=== PATIENT | male | born 1960 | race Caucasian/White ===

== ENCOUNTER 2022-04-01 22:09 | Inpatient (IN) | payer BC, OTHER ==
[~2022-04-01 22:09] MED LIST: Iopamidol-370 76% 500 ML 1 ML ONE
[2022-04-01 22:38] LABS: #Basophils 0.1 thou/uL (0.0-0.2); #Eosinphils 0.3 thou/uL (0.0-0.7); #Lymphocytes 4.4 thou/uL (1.20-3.40); #Neutrophils 12.9 thou/uL (1.40-6.50); %Basophils 0.4 % (0.0-1.0); %Eosinophils 1.4 % (0.0-10.0); %Lymphocytes 23.6 % (21.0-51.0); %Monocytes 5.3 % (0.0-10.0); %Neutrophils 69.3 % (42.0-75.0); Hemoglobin 12.9 g/dL (14.0-18.0); Mean Corpuscular HGB CONC 34.2 g/dL (32.0-36.0); Mean Corpuscular Hemoglobin 33.3 pg (27.0-31.0); Mean Corpuscular Volume 97.3 fL (78.0-98.0); Mean Platelet Volume 9.4 fL (7.4-10.4); Platelet Count 143 thou/uL (130-400); RBC Distribution Width 11.4 % (11.5-14.5); Red Blood Cell (RBC) Count 3.88 mill/uL (4.70-6.10); White Blood Cell (WBC) Count 18.7 thou/uL (4.8-10.8)
[2022-04-01 22:41] LABS: INR-International Normal Ratio 1.1; PTT 31.2 sec (22.9-36.1); Prothrombin Time 14.4 sec (12.0-14.7)
[2022-04-01 22:58] LABS: ALT (SGPT) 60 U/L (8-55); AST (SGOT) 83 U/L (5-34); Albumin 3.9 g/dL (3.4-4.8); Alcohol Less than 10 mg/dL (Less than 10); Alkaline Phosphatase 50 U/L (40-110); Anion Gap 16 mmol/L (10-20); BUN (Urea Nitrogen) 25 mg/dL (8.4-25.7); Bilirubin, Total 0.9 mg/dL (0.2-1.2); Calc. Creatinine Clearance 0 mL/min (70-130); Calcium 8.8 mg/dL (7.8-10.44); Carbon Dioxide 22 mmol/L (23-31); Chloride 103 mmol/L (98-107); Estimated GFR 67; Globulin 2.8 g/dL (2.4-3.5); Glucose 171 mg/dL (80-115); Lipase 50 U/L (8-78); Potassium 3.5 mmol/L (3.5-5.1); Protein, Total 6.7 g/dL (5.8-8.1); Sodium 137 mmol/L (136-145)
[2022-04-01] MEDS ORDERED: CEFAZOLIN 2 GM VIAL ONE (22:58)
[2022-04-01] MEDS ORDERED: Boostrix 0.5 ML (Tdap) VIAL (>/=7 yrs of age) ONE (22:58)
[2022-04-01] MEDS ORDERED: Ondansetron PF 4 MG/2 ML Vial ONE (23:48)
[2022-04-01] MEDS ORDERED: Morphine 4 MG/ML VIAL ONE (23:58)
[2022-04-01] MEDS ORDERED: Clindamycin/D5W 900 mg/50 ml Premix Bag ONE (23:58)
[2022-04-02] MEDS ORDERED: Lidocaine 1% (PF) 30 ML VIAL ONE ×2 (00:15→11:08)
[2022-04-02] MEDS ORDERED: Ondansetron PF 4 MG/2 ML Vial ONE ×2 (00:16→12:29)
[2022-04-02] MEDS ORDERED: Tranexamic Acid 1,000 MG/10 ML VIAL ONE (00:44)
[2022-04-02] MEDS ORDERED: Calcium Chloride 1 GM/10 ML Abboject SYRINGE ONE (00:59)
[2022-04-02] MEDS ORDERED: TETANUS, DIPHTHERIA TOX,ADULT (TDVAX) 0.5 ML VIAL IM ONE (01:48)
[2022-04-02] MEDS ORDERED: Ondansetron ODT 4 MG TAB PO PRN (01:48)
[2022-04-02] MEDS ORDERED: Dextrose 50% Abboject 50 ML SYRINGE SLOW IVP PRN (01:48)
[2022-04-02] MEDS ORDERED: Dextrose 5% in Water 1,000 ML IV PRN (01:48)
[2022-04-02] MEDS ORDERED: Promethazine HCl 25 MG/ML VIAL IM PRN ×2 (01:48→14:26)
[2022-04-02] MEDS ORDERED: traMADol HCl 50 MG TAB PO SCH (02:00)
[2022-04-02 02:04] LABS: Lactic Acid 3.7 mmol/L (0.5-2.2)
[2022-04-02 02:28] LABS: Bacteria/HPF None Seen HPF (None Seen); Bilirubin Negative (Negative); Blood, Urine 1+ (Negative); Clarity Clear (Clear); Glucose, Urine (Dipstick) Normal (Negative); Ketone, Urine Trace mg/dL (Negative); Leukocyte Negative Leu/uL (Negative); Nitrite Negative (Negative); Protein, Urine (Dipstick) 10 mg/dL (Neg-Trace); RBC/HPF 21-50 HPF (0-3); Specific Gravity, Urine 1.034 (1.002-1.036); Squamous Epithelial None Seen HPF (0-3); Urobilinogen Normal mg/dL (Less than 2); pH, Urine 6.5 (5.0-9.0)
[2022-04-02] MEDS: Sodium Chloride 0.9% 1,000 ML IV SCH ×2 (02:45→11:35)
[2022-04-02] MEDS: traMADol HCl 50 MG TAB PO SCH ×4 (03:14→20:24)
[2022-04-02] MEDS: Acetaminophen 325 MG TAB PO SCH ×4 (03:15→20:25)
[2022-04-02] MEDS: Ampicillin/Sulbactam 1.5 GM in Sodium Chloride 0.9% 100 ML IVPB SCH ×4 (03:50→20:20)
[2022-04-02 04:29] VITALS: BMI 35.9
[2022-04-02 04:32] LABS: Hemoglobin 10.7 g/dL (14.0-18.0)
[2022-04-02 04:54] LABS: #Lymphocytes 1.2 thou/uL (1.20-3.40); #Monocytes 1.1 thou/uL (0.11-0.59); #Neutrophils 9.2 thou/uL (1.40-6.50); %Basophils 0.3 % (0.0-1.0); %Eosinophils 0.2 % (0.0-10.0); %Lymphocytes 10.2 % (21.0-51.0); %Monocytes 9.2 % (0.0-10.0); %Neutrophils 80.1 % (42.0-75.0); Hemoglobin 10.6 g/dL (14.0-18.0); Large Platelets SLIGHT; MDiff Complete? YES; Mean Corpuscular HGB CONC 34.1 g/dL (32.0-36.0); Mean Corpuscular Hemoglobin 33.3 pg (27.0-31.0); Mean Corpuscular Volume 97.8 fL (78.0-98.0); Mean Platelet Volume 9.8 fL (7.4-10.4); Platelet Count 95 thou/uL (130-400); Platelet Morphology Comment Appears Decreased; RBC Distribution Width 11.5 % (11.5-14.5); RBC Morphology Normal; Red Blood Cell (RBC) Count 3.19 mill/uL (4.70-6.10); White Blood Cell (WBC) Count 11.4 thou/uL (4.8-10.8)
[2022-04-02 04:55] LABS: Anion Gap 13 mmol/L (10-20); BUN (Urea Nitrogen) 26 mg/dL (8.4-25.7); Calc. Creatinine Clearance 106 mL/min (70-130); Calcium 8.4 mg/dL (7.8-10.44); Carbon Dioxide 19 mmol/L (23-31); Chloride 110 mmol/L (98-107); Estimated GFR 81; Glucose 155 mg/dL (80-115); Magnesium 1.4 mg/dL (1.6-2.6); Potassium 3.5 mmol/L (3.5-5.1); Sodium 138 mmol/L (136-145)
[2022-04-02] MEDS: Morphine 2 MG/ML VIAL SLOW IVP PRN ×3 (05:12→16:57)
[2022-04-02] MEDS ORDERED: Ibuprofen 200 MG TAB PO SCH (06:00)
[2022-04-02] MEDS: Famotidine 20 MG TAB PO SCH ×2 (07:38→20:24)
[2022-04-02 08:20] LABS: SARS-CoV-2 NAA Rapid Test Not Detected (NotDetected)
[2022-04-02] MEDS ORDERED: fentaNYL Citrate/PF 100 MCG/2 ML SYRINGE ONE ×3 (08:41→12:34)
[2022-04-02] MEDS ORDERED: Midazolam HCl 2 mg/2 ml Vial ONE (08:41)
[2022-04-02] MEDS ORDERED: Gabapentin 300 MG CAP PO SCH (09:00)
[2022-04-02] MEDS ORDERED: Magnesium 2 GM/50 ML(in water) 2 GM in Premix Bag 1 BAG IVPB SCH (10:00)
[2022-04-02] MEDS ORDERED: EPINEPHrine 1 MG/ML AMP ONE (11:08)
[2022-04-02] MEDS ORDERED: Chlorhexidine Gluconate 15 ML UDCUP SSP ONE (11:08)
[2022-04-02] MEDS ORDERED: HYDROmorphone 0.5 MG/0.5 ML SYRINGE ONE (11:15)
[2022-04-02] MEDS ORDERED: Phenylephrine 1% Nasal Spray 15 ML BOT ONE (11:15)
[2022-04-02] MEDS ORDERED: Lidocaine 2% 6 ML SYR ONE (11:33)
[2022-04-02] MEDS ORDERED: Oxymetazoline HCl 0.05% (30 ML BOT) ONE (12:03)
[2022-04-02] MEDS ORDERED: Dexamethasone 20 MG/5 ML VIAL ONE (12:29)
[2022-04-02] MEDS ORDERED: Rocuronium Bromide 10 MG/ML (10ML VIAL) ONE (12:29)
[2022-04-02] MEDS ORDERED: Lidocaine 1% MPF 2 ML VIAL ONE (12:29)
[2022-04-02] MEDS ORDERED: PROPOFOL 200 MG/20 ML VIAL ONE (12:29)
[2022-04-02] MEDS ORDERED: Phenylephrine 10 MG/ML VIAL ONE (12:29)
[2022-04-02] MEDS ORDERED: Esmolol 100 MG/10 ML VIAL ONE (12:29)
[2022-04-02] MEDS ORDERED: Ketorolac Tromethamine 30 MG/ML VIAL ONE (12:29)
[2022-04-02] MEDS ORDERED: ePHEDrine 50 MG/ML VIAL ONE (12:29)
[2022-04-02] MEDS ORDERED: Propofol 1,000 MG/100 ML VIAL IV ONE (12:53)
[2022-04-02] MEDS ORDERED: SUGAMMADEX SODIUM 200 MG/2 ML VIAL ONE (13:43)
[2022-04-02] MEDS ORDERED: HYDROmorphone 2 MG/ML VIAL SLOW IVP PRN (14:26)
[2022-04-02] MEDS ORDERED: Ondansetron HCl/PF 4 MG/2 ML Vial IVP PRN (14:26)
[2022-04-02] MEDS ORDERED: Promethazine HCl 25 MG/ML VIAL IVPB PRN (14:26)
[2022-04-02] MEDS ORDERED: PACU-Morphine 4MG/ML VIAL SLOW IVP PRN (14:26)
[2022-04-02] MEDS: Gabapentin 300 MG CAP PO SCH ×2 (15:12→20:22)
[2022-04-02] MEDS: Ibuprofen 200 MG TAB PO SCH ×2 (15:12→20:23)
[2022-04-02] MEDS: Chlorhexidine Gluconate 15 ML UDCUP SSP SCH (20:25)
[2022-04-03] MEDS: Ampicillin/Sulbactam 1.5 GM in Sodium Chloride 0.9% 100 ML IVPB SCH ×4 (02:52→20:12)
[2022-04-03] MEDS: Acetaminophen 325 MG TAB PO SCH ×4 (02:53→20:15)
[2022-04-03] MEDS: traMADol HCl 50 MG TAB PO SCH ×5 (02:53→22:59)
[2022-04-03] MEDS: Ibuprofen 200 MG TAB PO SCH ×2 (02:56→09:12)
[2022-04-03] MEDS ORDERED: FLU VACC QS2022-23(6MOS UP)/PF 60 MCG/0.5 ML SYRINGE IM ONE (05:00)
[2022-04-03 06:11] LABS: #Basophils 0.1 thou/uL (0.0-0.2); #Lymphocytes 1.1 thou/uL (1.20-3.40); #Monocytes 0.9 thou/uL (0.11-0.59); #Neutrophils 8.8 thou/uL (1.40-6.50); %Eosinophils 0.1 % (0.0-10.0); %Lymphocytes 9.9 % (21.0-51.0); %Monocytes 8.2 % (0.0-10.0); %Neutrophils 80.9 % (42.0-75.0); Hemoglobin 8.3 g/dL (14.0-18.0); Mean Corpuscular HGB CONC 33.7 g/dL (32.0-36.0); Mean Corpuscular Hemoglobin 33.2 pg (27.0-31.0); Mean Corpuscular Volume 98.5 fL (78.0-98.0); Mean Platelet Volume 9.9 fL (7.4-10.4); Platelet Count 71 thou/uL (130-400); RBC Distribution Width 11.7 % (11.5-14.5); White Blood Cell (WBC) Count 10.9 thou/uL (4.8-10.8)
[2022-04-03 06:16] LABS: Anion Gap 10 mmol/L (10-20); BUN (Urea Nitrogen) 28 mg/dL (8.4-25.7); Calc. Creatinine Clearance 109 mL/min (70-130); Calcium 8.3 mg/dL (7.8-10.44); Carbon Dioxide 23 mmol/L (23-31); Chloride 109 mmol/L (98-107); Estimated GFR 83; Glucose 161 mg/dL (80-115); Magnesium 1.9 mg/dL (1.6-2.6); Potassium 3.8 mmol/L (3.5-5.1); Sodium 138 mmol/L (136-145)
[2022-04-03 06:24] LABS: Phosphorus 1.9 mg/dL (2.3-4.7)
[2022-04-03] MEDS ORDERED: Potassium Phosphate 30 MMOL in Sodium Chloride 0.9% 250 ML 250 ML IVPB SCH (07:30)
[2022-04-03] MEDS: Morphine 2 MG/ML VIAL SLOW IVP PRN ×2 (07:40→20:36)
[2022-04-03] MEDS: Ascorbic Acid 500 mg Chewable Tablet PO SCH (09:04)
[2022-04-03] MEDS: Chlorhexidine Gluconate 15 ML UDCUP SSP SCH ×2 (09:04→20:19)
[2022-04-03] MEDS: Famotidine 20 MG TAB PO SCH (09:04)
[2022-04-03] MEDS: Gabapentin 300 MG CAP PO SCH ×3 (09:06→20:18)
[2022-04-03] MEDS: Ondansetron PF 4 MG/2 ML Vial IVP PRN (10:19)
[2022-04-03] MEDS ORDERED: Ketorolac Tromethamine 30 MG/ML VIAL IVP SCH (12:00)
[2022-04-03] MEDS ORDERED: Sodium Chloride 0.9% 1,000 ML IV SCH (15:30)
[2022-04-04] MEDS: Ampicillin/Sulbactam 1.5 GM in Sodium Chloride 0.9% 100 ML IVPB SCH ×4 (02:33→20:52)
[2022-04-04] MEDS: Acetaminophen 500 MG TAB PO SCH ×2 (02:34→08:52)
[2022-04-04] MEDS: traMADol HCl 50 MG TAB PO SCH ×4 (05:22→23:27)
[2022-04-04 06:10] LABS: #Lymphocytes 1.5 thou/uL (1.20-3.40); #Monocytes 0.7 thou/uL (0.11-0.59); #Neutrophils 7.2 thou/uL (1.40-6.50); %Eosinophils 0.4 % (0.0-10.0); %Lymphocytes 15.7 % (21.0-51.0); %Monocytes 7.8 % (0.0-10.0); Hemoglobin 6.9 g/dL (14.0-18.0); Mean Corpuscular HGB CONC 33.8 g/dL (32.0-36.0); Mean Corpuscular Volume 97.5 fL (78.0-98.0); Mean Platelet Volume 10.1 fL (7.4-10.4); Platelet Count 67 thou/uL (130-400); Red Blood Cell (RBC) Count 2.11 mill/uL (4.70-6.10); White Blood Cell (WBC) Count 9.5 thou/uL (4.8-10.8)
[2022-04-04 06:30] LABS: Anion Gap 4 mmol/L (10-20); BUN (Urea Nitrogen) 22 mg/dL (8.4-25.7); CK (CPK) 1247 U/L (30-200); Calc. Creatinine Clearance 132 mL/min (70-130); Carbon Dioxide 29 mmol/L (23-31); Chloride 107 mmol/L (98-107); Estimated GFR 98; Glucose 115 mg/dL (80-115); Magnesium 2.1 mg/dL (1.6-2.6); Phosphorus 2.3 mg/dL (2.3-4.7); Potassium 4.1 mmol/L (3.5-5.1); Sodium 136 mmol/L (136-145)
[2022-04-04] MEDS ORDERED: PHOS-NAK 1 PKT PACK PO SCH (08:00)
[2022-04-04] MEDS: Chlorhexidine Gluconate 15 ML UDCUP SSP SCH ×2 (08:52→20:55)
[2022-04-04] MEDS: Gabapentin 300 MG CAP PO SCH ×3 (08:53→20:55)
[2022-04-04] MEDS: Ascorbic Acid 500 mg Chewable Tablet PO SCH (08:53)
[2022-04-04] MEDS ORDERED: Morphine 2 MG/ML VIAL SLOW IVP PRN (10:48)
[2022-04-04] MEDS ORDERED: Morphine 4 MG/ML VIAL SLOW IVP PRN (10:48)
[2022-04-04] MEDS: Dexamethasone 4 mg/ml Vial SLOW IVP SCH ×3 (12:19→23:27)
[2022-04-04] MEDS: HYDROcodone/Acetaminophen 10/325 mg Tablet PO SCH ×2 (15:37→20:52)
[2022-04-04] MEDS: Morphine 4 MG/ML VIAL SLOW IVP PRN ×2 (16:00→22:00)
[2022-04-04] MEDS: Senokot S 8.6-50 MG TAB PO SCH (21:27)
[2022-04-05] MEDS: Ampicillin/Sulbactam 1.5 GM in Sodium Chloride 0.9% 100 ML IVPB SCH (02:03)
[2022-04-05] MEDS: Morphine 4 MG/ML VIAL SLOW IVP PRN ×3 (02:03→10:30)
[2022-04-05] MEDS: traMADol HCl 50 MG TAB PO SCH (05:12)
[2022-04-05] MEDS: Dexamethasone 4 mg/ml Vial SLOW IVP SCH ×2 (05:12→12:09)
[2022-04-05 06:13] LABS: #Basophils 0.2 thou/uL (0.0-0.2); #Monocytes 0.5 thou/uL (0.11-0.59); #Neutrophils 9.6 thou/uL (1.40-6.50); %Basophils 1.6 % (0.0-1.0); %Eosinophils 0.4 % (0.0-10.0); %Lymphocytes 8.6 % (21.0-51.0); %Monocytes 4.6 % (0.0-10.0); %Neutrophils 84.9 % (42.0-75.0); Hemoglobin 8.5 g/dL (14.0-18.0); Mean Corpuscular HGB CONC 34.4 g/dL (32.0-36.0); Mean Corpuscular Hemoglobin 31.5 pg (27.0-31.0); Mean Corpuscular Volume 91.8 fL (78.0-98.0); Mean Platelet Volume 9.9 fL (7.4-10.4); Platelet Count 111 thou/uL (130-400); RBC Distribution Width 17.6 % (11.5-14.5); Red Blood Cell (RBC) Count 2.68 mill/uL (4.70-6.10); White Blood Cell (WBC) Count 11.3 thou/uL (4.8-10.8)
[2022-04-05 07:47] LABS: Anion Gap 11 mmol/L (10-20); BUN (Urea Nitrogen) 18 mg/dL (8.4-25.7); Calc. Creatinine Clearance 142 mL/min (70-130); Calcium 8.8 mg/dL (7.8-10.44); Carbon Dioxide 26 mmol/L (23-31); Chloride 104 mmol/L (98-107); Estimated GFR 100; Glucose 146 mg/dL (80-115); Magnesium 1.9 mg/dL (1.6-2.6); Phosphorus 3.4 mg/dL (2.3-4.7); Potassium 4.3 mmol/L (3.5-5.1); Sodium 137 mmol/L (136-145)
[2022-04-05] MEDS: Chlorhexidine Gluconate 15 ML UDCUP SSP SCH ×2 (09:01→19:58)
[2022-04-05] MEDS: Polyethylene Glycol 3350 17 GM Packet PO SCH (09:01)
[2022-04-05] MEDS: Gabapentin 300 MG CAP PO SCH ×3 (09:01→19:58)
[2022-04-05] MEDS: Ascorbic Acid 500 mg Chewable Tablet PO SCH (09:02)
[2022-04-05] MEDS: HYDROcodone/Acetaminophen 10/325 mg Tablet PO SCH ×4 (09:02→19:58)
[2022-04-05] MEDS: Senokot S 8.6-50 MG TAB PO SCH ×2 (09:02→19:59)
[2022-04-05] MEDS: Ferrous Sulfate 325 MG TAB PO SCH (09:02)
[2022-04-05] MEDS ORDERED: Morphine 4 MG/ML VIAL SLOW IVP SCH (12:30)
[2022-04-05] MEDS: Bacitracin 1 PK TOP SCH (19:58)
[2022-04-05] MEDS: Enoxaparin Sodium 30 MG/0.3 ML SYRINGE SC SCH (19:58)
[2022-04-06] MEDS: HYDROcodone/Acetaminophen 10/325 mg Tablet PO SCH ×6 (00:38→20:44)
[2022-04-06 06:32] LABS: Anion Gap 12 mmol/L (10-20); BUN (Urea Nitrogen) 23 mg/dL (8.4-25.7); Calc. Creatinine Clearance 132 mL/min (70-130); Calcium 9.2 mg/dL (7.8-10.44); Carbon Dioxide 27 mmol/L (23-31); Chloride 102 mmol/L (98-107); Estimated GFR 98; Glucose 133 mg/dL (80-115); Magnesium 2.1 mg/dL (1.6-2.6); Phosphorus 3.2 mg/dL (2.3-4.7); Potassium 4.8 mmol/L (3.5-5.1); Sodium 136 mmol/L (136-145)
[2022-04-06 06:37] LABS: Hemoglobin 8.9 g/dL (14.0-18.0); Mean Corpuscular HGB CONC 32.2 g/dL (32.0-36.0); Mean Corpuscular Hemoglobin 29.9 pg (27.0-31.0); Mean Corpuscular Volume 92.7 fL (78.0-98.0); Mean Platelet Volume 9.2 fL (7.4-10.4); Platelet Count 151 thou/uL (130-400); RBC Distribution Width 17.6 % (11.5-14.5); Red Blood Cell (RBC) Count 2.99 mill/uL (4.70-6.10); White Blood Cell (WBC) Count 16.3 thou/uL (4.8-10.8)
[2022-04-06] MEDS: Ondansetron PF 4 MG/2 ML Vial IVP PRN (06:40)
[2022-04-06 08:40] LABS: #Basophils 0.2 thou/uL (0.0-0.2); #Lymphocytes 2.1 thou/uL (1.20-3.40); #Monocytes 1.4 thou/uL (0.11-0.59); #Neutrophils 12.9 thou/uL (1.40-6.50); %Basophils 1.2 % (0.0-1.0); %Eosinophils 0.3 % (0.0-10.0); %Lymphocytes 12.8 % (21.0-51.0); %Monocytes 8.3 % (0.0-10.0); %Neutrophils 77.4 % (42.0-75.0); Band 10 % (5-11); Lymphocytes 16 % (21-51); MDiff Complete? YES; Monocytes 3 % (0-10); Myelocyte 1 % (0-0); Neutrophil 70 % (42-75); Platelet Morphology Comment Appears Adequate; RBC Morphology Normal
[2022-04-06] MEDS: Ferrous Sulfate 325 MG TAB PO SCH (08:40)
[2022-04-06] MEDS: Ascorbic Acid 500 mg Chewable Tablet PO SCH (08:40)
[2022-04-06] MEDS: Polyethylene Glycol 3350 17 GM Packet PO SCH (08:41)
[2022-04-06] MEDS: Enoxaparin Sodium 30 MG/0.3 ML SYRINGE SC SCH (08:41)
[2022-04-06] MEDS: Senokot S 8.6-50 MG TAB PO SCH ×2 (08:41→20:43)
[2022-04-06] MEDS ORDERED: Morphine 4 MG/ML VIAL SLOW IVP SCH ×2 (09:00→09:30)
[2022-04-06] MEDS: Gabapentin 400 MG CAP PO SCH ×3 (09:11→20:43)
[2022-04-06] MEDS: Finasteride 5 MG TAB PO SCH (09:11)
[2022-04-06] MEDS: Chlorhexidine Gluconate 15 ML UDCUP SSP SCH ×2 (09:20→20:42)
[2022-04-06] MEDS: Atenolol 50 MG TAB PO SCH (09:41)
[2022-04-06] MEDS: Chlorthalidone 25 MG TAB PO SCH (09:42)
[2022-04-06] MEDS: Bacitracin 1 PK TOP SCH ×2 (09:46→20:43)
[2022-04-06] MEDS ORDERED: fentaNYL Citrate/PF 100 MCG/2 ML SYRINGE ONE (11:22)
[2022-04-06] MEDS ORDERED: Bupivacaine HCl 0.5%/Epinephrine 1:200,000/PF 30 ml Vial ONE (11:26)
[2022-04-06] MEDS ORDERED: Oxymetazoline HCl 0.05% (30 ML BOT) ONE (11:55)
[2022-04-06] MEDS ORDERED: CEFAZOLIN 2 GM VIAL ONE (12:17)
[2022-04-06] MEDS ORDERED: Lidocaine 2% 6 ML SYR ONE (12:17)
[2022-04-06] MEDS ORDERED: Sodium Chloride 0.9% 100 ML ONE (12:17)
[2022-04-06] MEDS ORDERED: Lidocaine 1% PF 5 ML VIAL ONE (12:42)
[2022-04-06] MEDS ORDERED: Dexamethasone 20 MG/5 ML VIAL ONE (12:42)
[2022-04-06] MEDS ORDERED: Rocuronium Bromide 10 MG/ML (10ML VIAL) ONE (12:42)
[2022-04-06] MEDS ORDERED: Ondansetron PF 4 MG/2 ML Vial ONE (12:42)
[2022-04-06] MEDS ORDERED: PROPOFOL 200 MG/20 ML VIAL ONE (12:42)
[2022-04-06] MEDS ORDERED: Ketorolac Tromethamine 30 MG/ML VIAL ONE (12:42)
[2022-04-06] MEDS ORDERED: Morphine 4 MG/ML VIAL SLOW IVP PRN (13:00)
[2022-04-06] MEDS ORDERED: CEFAZOLIN 2 GM in Sodium Chloride 0.9% 100 ML IVPB SCH ×2 (13:00→20:05)
[2022-04-06] MEDS ORDERED: SUGAMMADEX SODIUM 200 MG/2 ML VIAL ONE (14:53)
[2022-04-06] MEDS ORDERED: Meperidine HCl/PF 25 MG/ML VIAL SLOW IVP PRN (15:17)
[2022-04-06] MEDS ORDERED: Ondansetron HCl/PF 4 MG/2 ML Vial IVP PRN (15:17)
[2022-04-06] MEDS ORDERED: Promethazine HCl 25 MG/ML VIAL IVPB PRN (15:17)
[2022-04-06] MEDS ORDERED: HYDROmorphone 2 MG/ML VIAL SLOW IVP PRN (15:17)
[2022-04-06] MEDS ORDERED: Promethazine HCl 25 MG/ML VIAL ONE (15:26)
[2022-04-06] MEDS ORDERED: Fentanyl 100 MCG/2 ML VIAL ONE ×3 (15:30→16:58)
[2022-04-06] MEDS ORDERED: HYDROmorphone 2 MG/ML VIAL ONE (15:42)
[2022-04-06] MEDS: Simvastatin 10 MG TAB PO SCH (20:44)
[2022-04-07] MEDS: HYDROcodone/Acetaminophen 10/325 mg Tablet PO SCH ×6 (01:47→21:03)
[2022-04-07 05:33] LABS: Anion Gap 12 mmol/L (10-20); BUN (Urea Nitrogen) 35 mg/dL (8.4-25.7); Calc. Creatinine Clearance 118 mL/min (70-130); Calcium 8.5 mg/dL (7.8-10.44); Carbon Dioxide 26 mmol/L (23-31); Chloride 103 mmol/L (98-107); Estimated GFR 92; Glucose 115 mg/dL (80-115); Magnesium 2.1 mg/dL (1.6-2.6); Phosphorus 4.4 mg/dL (2.3-4.7); Potassium 4.5 mmol/L (3.5-5.1); Sodium 136 mmol/L (136-145)
[2022-04-07 05:59] LABS: Band 7 % (5-11); Hemoglobin 8.3 g/dL (14.0-18.0); Lymphocytes 15 % (21-51); MDiff Complete? YES; Mean Corpuscular HGB CONC 33.3 g/dL (32.0-36.0); Mean Corpuscular Hemoglobin 31.3 pg (27.0-31.0); Mean Corpuscular Volume 93.9 fL (78.0-98.0); Mean Platelet Volume 8.9 fL (7.4-10.4); Monocytes 11 % (0-10); Neutrophil 67 % (42-75); Platelet Count 138 thou/uL (130-400); RBC Distribution Width 18.2 % (11.5-14.5); Red Blood Cell (RBC) Count 2.66 mill/uL (4.70-6.10); White Blood Cell (WBC) Count 17.4 thou/uL (4.8-10.8)
[2022-04-07] MEDS: Ondansetron PF 4 MG/2 ML Vial IVP PRN (06:36)
[2022-04-07] MEDS: Gabapentin 400 MG CAP PO SCH ×3 (08:12→21:04)
[2022-04-07] MEDS: Senokot S 8.6-50 MG TAB PO SCH ×2 (08:12→21:04)
[2022-04-07] MEDS: Finasteride 5 MG TAB PO SCH (08:13)
[2022-04-07] MEDS: Ascorbic Acid 500 mg Chewable Tablet PO SCH (08:13)
[2022-04-07] MEDS: Bacitracin 1 PK TOP SCH ×2 (08:13→21:03)
[2022-04-07] MEDS: Chlorhexidine Gluconate 15 ML UDCUP SSP SCH ×2 (08:13→21:03)
[2022-04-07] MEDS: Ferrous Sulfate 325 MG TAB PO SCH (08:14)
[2022-04-07] MEDS: Atenolol 50 MG TAB PO SCH (08:14)
[2022-04-07] MEDS: Chlorthalidone 25 MG TAB PO SCH (08:14)
[2022-04-07] MEDS: Polyethylene Glycol 3350 17 GM Packet PO SCH (08:16)
[2022-04-07 09:44] LABS: Bacteria/HPF None Seen HPF (None Seen); Bilirubin Negative (Negative); Blood, Urine Negative (Negative); Clarity Clear (Clear); Glucose, Urine (Dipstick) Normal (Negative); Ketone, Urine Negative (Negative); Leukocyte Negative Leu/uL (Negative); Nitrite Negative (Negative); Protein, Urine (Dipstick) Negative (Neg-Trace); RBC/HPF 0-3 HPF (0-3); Specific Gravity, Urine 1.007 (1.002-1.036); Squamous Epithelial None Seen HPF (0-3); Urobilinogen Normal mg/dL (Less than 2); WBC/HPF 0-3 HPF (0-3)
[2022-04-07 09:45] LABS: Urine Culture Reflex No No
[2022-04-07] MEDS: Simvastatin 10 MG TAB PO SCH (21:05)
[2022-04-07] MEDS: Enoxaparin Sodium 30 MG/0.3 ML SYRINGE SC SCH (21:05)
[2022-04-08] MEDS: HYDROcodone/Acetaminophen 10/325 mg Tablet PO SCH ×6 (01:04→21:23)
[2022-04-08] MEDS: HYDROcodone/Acetaminophen 10/325 mg Tablet PO PRN ×3 (02:14→18:10)
[2022-04-08 06:42] LABS: #Eosinphils 0.1 thou/uL (0.0-0.7); #Lymphocytes 3.3 thou/uL (1.20-3.40); #Monocytes 1.4 thou/uL (0.11-0.59); #Neutrophils 9.8 thou/uL (1.40-6.50); %Basophils 0.3 % (0.0-1.0); %Eosinophils 0.9 % (0.0-10.0); %Lymphocytes 22.4 % (21.0-51.0); %Monocytes 9.4 % (0.0-10.0); %Neutrophils 67.1 % (42.0-75.0); Hemoglobin 8.5 g/dL (14.0-18.0); Mean Corpuscular HGB CONC 34.3 g/dL (32.0-36.0); Mean Corpuscular Volume 93.4 fL (78.0-98.0); Platelet Count 128 thou/uL (130-400); RBC Distribution Width 17.7 % (11.5-14.5); Red Blood Cell (RBC) Count 2.66 mill/uL (4.70-6.10); White Blood Cell (WBC) Count 14.7 thou/uL (4.8-10.8)
[2022-04-08 06:57] LABS: Anion Gap 8 mmol/L (10-20); BUN (Urea Nitrogen) 27 mg/dL (8.4-25.7); Calc. Creatinine Clearance 112 mL/min (70-130); Calcium 8.7 mg/dL (7.8-10.44); Carbon Dioxide 29 mmol/L (23-31); Chloride 103 mmol/L (98-107); Estimated GFR 86; Glucose 107 mg/dL (80-115); Phosphorus 3.5 mg/dL (2.3-4.7); Potassium 4.3 mmol/L (3.5-5.1); Sodium 136 mmol/L (136-145)
[2022-04-08] MEDS ORDERED: Cyclobenzaprine 10 MG TAB PO PRN (09:19)
[2022-04-08] MEDS ORDERED: traMADol HCl 50 MG TAB PO PRN (09:19)
[2022-04-08] MEDS: Ascorbic Acid 500 mg Chewable Tablet PO SCH (09:21)
[2022-04-08] MEDS: Ferrous Sulfate 325 MG TAB PO SCH (09:21)
[2022-04-08] MEDS: Senokot S 8.6-50 MG TAB PO SCH ×2 (09:22→21:22)
[2022-04-08] MEDS: Atenolol 50 MG TAB PO SCH (09:22)
[2022-04-08] MEDS: Finasteride 5 MG TAB PO SCH (09:23)
[2022-04-08] MEDS: Enoxaparin Sodium 30 MG/0.3 ML SYRINGE SC SCH ×2 (09:23→21:23)
[2022-04-08] MEDS: Chlorhexidine Gluconate 15 ML UDCUP SSP SCH ×2 (09:23→21:22)
[2022-04-08] MEDS: Bacitracin 1 PK TOP SCH ×2 (09:23→21:22)
[2022-04-08] MEDS: Polyethylene Glycol 3350 17 GM Packet PO SCH (09:25)
[2022-04-08] MEDS: Gabapentin 400 MG CAP PO SCH ×3 (09:35→21:22)
[2022-04-08] MEDS: Chlorthalidone 25 MG TAB PO SCH (09:36)
[2022-04-08] MEDS: Lidocaine Viscous Sol 2% 15 ml UD Cup FS PRN (21:22)
[2022-04-08] MEDS: Simvastatin 10 MG TAB PO SCH (21:22)
[2022-04-09] MEDS: HYDROcodone/Acetaminophen 10/325 mg Tablet PO SCH ×6 (00:30→20:26)
[2022-04-09] MEDS: HYDROcodone/Acetaminophen 10/325 mg Tablet PO PRN (04:25)
[2022-04-09] MEDS: Gabapentin 400 MG CAP PO SCH ×3 (09:06→20:26)
[2022-04-09] MEDS: Ferrous Sulfate 325 MG TAB PO SCH (09:08)
[2022-04-09] MEDS: Senokot S 8.6-50 MG TAB PO SCH ×2 (09:08→20:26)
[2022-04-09] MEDS: Ascorbic Acid 500 mg Chewable Tablet PO SCH (09:08)
[2022-04-09] MEDS: Polyethylene Glycol 3350 17 GM Packet PO SCH (09:08)
[2022-04-09] MEDS: Enoxaparin Sodium 30 MG/0.3 ML SYRINGE SC SCH ×2 (09:10→20:26)
[2022-04-09] MEDS: Atenolol 50 MG TAB PO SCH (09:10)
[2022-04-09] MEDS: Chlorthalidone 25 MG TAB PO SCH (09:10)
[2022-04-09] MEDS: Finasteride 5 MG TAB PO SCH (09:10)
[2022-04-09] MEDS: Chlorhexidine Gluconate 15 ML UDCUP SSP SCH ×2 (09:11→20:25)
[2022-04-09] MEDS: Bacitracin 1 PK TOP SCH ×2 (09:11→20:25)
[2022-04-09] MEDS: Lidocaine Viscous Sol 2% 15 ml UD Cup FS PRN ×2 (11:30→20:27)
[2022-04-09] MEDS: Simvastatin 10 MG TAB PO SCH (20:26)
[2022-04-10] MEDS: HYDROcodone/Acetaminophen 10/325 mg Tablet PO SCH ×4 (00:39→12:41)
[2022-04-10] MEDS: Gabapentin 400 MG CAP PO SCH (09:12)
[2022-04-10] MEDS: Ferrous Sulfate 325 MG TAB PO SCH (09:12)
[2022-04-10] MEDS: Ascorbic Acid 500 mg Chewable Tablet PO SCH (09:12)
[2022-04-10] MEDS: Finasteride 5 MG TAB PO SCH (09:12)
[2022-04-10] MEDS: Enoxaparin Sodium 30 MG/0.3 ML SYRINGE SC SCH (09:14)
[2022-04-10] MEDS: Senokot S 8.6-50 MG TAB PO SCH (09:14)
[2022-04-10] MEDS: Chlorhexidine Gluconate 15 ML UDCUP SSP SCH (09:14)
[2022-04-10] MEDS: Bacitracin 1 PK TOP SCH (09:14)
[2022-04-10] MEDS: Polyethylene Glycol 3350 17 GM Packet PO SCH (09:14)
[2022-04-10] MEDS: Atenolol 50 MG TAB PO SCH (09:16)
[2022-04-10] MEDS: Chlorthalidone 25 MG TAB PO SCH (09:16)
[2022-04-10 12:54] VITALS: BP 128/78; TEMP 99.1
== END 2022-04-10 15:30 | DRG 493 ==
LOC: ERS 22:09 → SJJU 04-02 00:04
PROVIDERS: ADMIT Surgery; ATTEND Surgery
PROC: 0CQ7XZZ Repair Tongue, External Approach (ICD-10-PCS; principal; 2022-04-02)
PROC: 0CQ1XZZ Repair Lower Lip, External Approach (ICD-10-PCS; 2022-04-02)
PROC: 0NSVXZZ Reposition Left Mandible, External Approach (ICD-10-PCS; 2022-04-02)
PROC: 0NST35Z Reposition Right Mandible with External Fixation Device, Percutaneous Approach (ICD-10-PCS; 2022-04-02)
PROC: 0NSV35Z Reposition Left Mandible with External Fixation Device, Percutaneous Approach (ICD-10-PCS; 2022-04-02)
PROC: 30233N1 Transfusion of Nonautologous Red Blood Cells into Peripheral Vein, Percutaneous Approach (ICD-10-PCS; 2022-04-02)
PROC: 6A550Z2 Pheresis of Platelets, Single (ICD-10-PCS; 2022-04-04)
PROC: 0QSH04Z Reposition Left Tibia with Internal Fixation Device, Open Approach (ICD-10-PCS; 2022-04-07)
DX: S82.142A Displaced bicondylar fracture of left tibia, initial encounter for closed fracture (principal); D62 Acute posthemorrhagic anemia; S02.622A Fracture of subcondylar process of left mandible, initial encounter for closed fracture; S32.592A Other specified fracture of left pubis, initial encounter for closed fracture; S32.591A Other specified fracture of right pubis, initial encounter for closed fracture; S22.32XA Fracture of one rib, left side, initial encounter for closed fracture; S02.66XB Fracture of symphysis of mandible, initial encounter for open fracture; I10 Essential (primary) hypertension; N40.0 Benign prostatic hyperplasia without lower urinary tract symptoms; E78.5 Hyperlipidemia, unspecified; M54.9 Dorsalgia, unspecified; G89.29 Other chronic pain; G89.11 Acute pain due to trauma; D69.6 Thrombocytopenia, unspecified; M41.9 Scoliosis, unspecified; D72.829 Elevated white blood cell count, unspecified; Z20.822 Contact with and (suspected) exposure to COVID-19; V03.10XA Pedestrian on foot injured in collision with car, pick-up truck or van in traffic accident, initial encounter; Z82.49 Family history of ischemic heart disease and other diseases of the circulatory system; Z87.891 Personal history of nicotine dependence; Z98.890 Other specified postprocedural states
CPT/HCPCS: 36415; 36416; 36430; 70450; 70486; 71045; 71260; 72125; 72170; 74177; 76000; 76377; 80048; 80053; 80307; 81001; 81003; 82550; 83605; 83690; 83735; 84100; 85014; 85018; 85025; 85610; 85730; 86850; 86900; 86901; 87811; 90471; 90715; 93005; 94760; 96365; 96367; 96375; C1713; G0390; J0171; J0295; J0690; J1100; J1170; J1650; J1885; J2001; J2250; J2270; J2370; J2405; J2550; J2704; J3010; J3475; J3490; J7050; P9016; P9035; Q9967; U0002

== ENCOUNTER 2022-06-07 08:37 | Outpatient (CLI) | payer BC | END 2022-06-07 08:38 | disposition home or self-care (01) | LOC: SCSMRI 08:37 | PROVIDERS: ATTEND Orthopaedic Surgery | DX: M24.812 Other specific joint derangements of left shoulder, not elsewhere classified (principal); M19.012 Primary osteoarthritis, left shoulder; R60.0 Localized edema; M25.412 Effusion, left shoulder ==

== ENCOUNTER 2022-11-13 11:03 | Outpatient (CLI) | payer BC ==
[2022-11-13 12:42] LABS: #Basophils 0.1 10x3/uL (0.0-0.2); #Eosinphils 0.4 10x3/uL (0.0-0.5); #Monocytes 0.7 10x3/uL (0.0-1.1); #Neutrophils 3.7 10x3/uL (1.5-8.4); %Basophils 1.2 % (0.0-2.0); %Lymphocytes 29.9 % (18.0-47.0); %Monocytes 9.8 % (0.0-10.0); %Neutrophils 53.8 % (40.0-75.0); Hemoglobin 13.2 g/dL (13.5-17.5); Mean Corpuscular HGB CONC 33.4 g/dL (32.0-36.0); Mean Corpuscular Hemoglobin 31.3 pg (27.0-33.0); Mean Corpuscular Volume 93.6 fl (81.2-95.1); Mean Platelet Volume 11.9 fl (7.4-10.4); Platelet Count 160 10x3/uL (150-450); RBC Distribution Width 12.6 % (11.5-14.5); Red Blood Cell (RBC) Count 4.22 10x6/uL (4.32-5.72)
[2022-11-13 12:59] LABS: Anion Gap 15 mmol/L (10-20); BUN (Urea Nitrogen) 23 mg/dL (8.4-25.7); Calc. Creatinine Clearance 0 mL/min (70-130); Calcium 9.9 mg/dL (7.8-10.44); Carbon Dioxide 27 mmol/L (23-31); Chloride 101 mmol/L (98-107); Estimated GFR 54; Glucose 83 mg/dL (80-115); Potassium 4.6 mmol/L (3.5-5.1); Sodium 138 mmol/L (136-145)
== END 2022-11-13 11:04 | disposition home or self-care (01) ==
LOC: LABBT 11:03
PROVIDERS: ATTEND Orthopaedic Surgery
DX: Z01.818 Encounter for other preprocedural examination (principal); S46.012A Strain of muscle(s) and tendon(s) of the rotator cuff of left shoulder, initial encounter
CPT/HCPCS: 80048; 85025; 93005; 93010

== ENCOUNTER 2024-06-28 03:24 | Emergency (ER) | payer MEDICARE ==
[2024-06-28] MEDS ORDERED: HYDROmorphone 0.5 MG/0.5 ML SYRINGE ONE (03:46)
[2024-06-28] MEDS ORDERED: Ketorolac Tromethamine 30 MG (1 mL) VIAL ONE (03:46)
[2024-06-28] MEDS ORDERED: Ondansetron PF 4 MG/2 ML Vial ONE (03:47)
[2024-06-28 06:21] LABS: Bacteria/HPF None Seen HPF (None Seen); Bilirubin Negative (Negative); Blood, Urine 2+ (Negative); CAUTI Indications for Culture Dysuria,urgency,freq; Clarity Clear (Clear); Glucose, Urine (Dipstick) Normal (Negative); Ketone, Urine Negative (Negative); Leukocyte Negative Leu/uL (Negative); Nitrite Negative (Negative); Protein, Urine (Dipstick) Negative (Neg-Trace); RBC/HPF 21-50 HPF (0-3); Specific Gravity, Urine 1.025 (1.002-1.036); Squamous Epithelial 0-3 HPF (0-3); Urobilinogen Normal mg/dL (Less than 2)
[2024-06-28 06:23] LABS: Urine Culture Reflex No No
[2024-06-28 07:12] LABS: ALT (SGPT) 27 U/L (8-55); AST (SGOT) 27 U/L (5-34); Albumin 4.2 g/dL (3.4-4.8); Alkaline Phosphatase 54 U/L (40-110); Anion Gap 14 mmol/L (10-20); BUN (Urea Nitrogen) 25 mg/dL (8.4-25.7); Bilirubin, Total 0.4 mg/dL (0.2-1.2); Calc. Creatinine Clearance 0 mL/min (70-130); Calcium 9.8 mg/dL (7.8-10.44); Carbon Dioxide 23 mmol/L (23-31); Chloride 103 mmol/L (98-107); Estimated GFR 60; Globulin 3.3 g/dL (2.4-3.5); Glucose 203 mg/dL (80-115); Lipase 25 U/L (8-78); Potassium 3.6 mmol/L (3.5-5.1); Protein, Total 7.5 g/dL (5.8-8.1); Sodium 136 mmol/L (136-145)
[2024-06-28 11:01] LABS: Hematocrit 46.1 % (42.0-52.0); Hemoglobin 15.9 g/dL (14.0-18.0); Mean Corpuscular HGB CONC 34.5 g/dL (32.0-36.0); Mean Corpuscular Hemoglobin 31.8 pg (27.0-31.0); Mean Corpuscular Volume 92.2 fL (78.0-98.0); Mean Platelet Volume 11.4 fL (7.4-10.4); Platelet Count 172 10x3/uL (130-400); RBC Distribution Width 12.8 % (11.5-14.5)
[2024-06-28 12:14] LABS: Band 7 % (5-11); Eosinophils 1 % (0-10); Large Platelets 1.8 % (0-5); Lymphocytes 16 % (21-51); Monocytes 2 % (0-10); Neutrophil 75 % (42-75); Platelet Adequacy Comment Platelets Normal; Polychromasia SLIGHT = 2-3 cells HPF (0-2)
== END 2024-06-28 06:41 | disposition home or self-care (01) ==
LOC: ERS 03:24
DX: N17.9 Acute kidney failure, unspecified (principal); N20.0 Calculus of kidney; I10 Essential (primary) hypertension; Z87.891 Personal history of nicotine dependence
CPT/HCPCS: 74176; 80053; 81001; 83690; 85025; J1171; J1885; J2405; 96361; 96374; 96375